=== PATIENT | female | born 2000 | race African-American/Black ===

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

== ENCOUNTER 2020-12-09 16:06 | Inpatient (IN) ==
[2020-12-09] MEDS ORDERED: Lactated Ringers 1000 ml BAG 1,000 ML IV ONE (16:45)
[2020-12-09] MEDS ORDERED: Penicillin G Potassium IV 5,000,000 UNITS in NS 0.9% 100 ml BAG 100 ML IVPB ONE (16:45)
[2020-12-09] MEDS ORDERED: Buffered Lidocaine 1% SYRIN 1 ml INTRADERM ONE (16:45)
[2020-12-09] MEDS ORDERED: Lactated Ringers 1000 ml BAG 1,000 ML IV SCH ×3 (17:00→18:00)
[2020-12-09] MEDS ORDERED: Penicillin G Potassium IV 3,000,000 UNITS in NS 0.9% 100 ml BAG 100 ML IVPB SCH (17:00)
[2020-12-09 17:02] LABS: ABS Monocytes 0.8 10^3/ul (0-0.8); Eosinophil % 0.5 %; Hematocrit 32 % (35-47); Hemoglobin 10.9 g/dL (12.0-16.0); Lymphocyte % 18.1 %; Mean Corpuscular HGB Conc 34 g/dL (31-36); Mean Corpuscular Hemoglobin 30 pg (27-31); Mean Corpuscular Volume 86 fL (80-97); Mean Platelet Volume 8.7 fL (7.4-10.4); Nucleated Red Blood Cells % 0.1; Platelet Count 219 10^3/uL (150-450); Red Cell Distribution Width 15 % (10-15); White Blood Count 10.9 10^3/uL (3.5-10.8)
[2020-12-09] MEDS ORDERED: Tetan/Diph/Pertus SYR(Tdap) 0.5 ML SYR(BOOSTRIX) use SYR contains LATEX IM ONE (17:58)
[2020-12-09] MEDS ORDERED: Dibucaine 1% OINT 28.35 GM TUBE PR PRN (17:58)
[2020-12-09] MEDS ORDERED: Witch Hazel PAD JAR TOPICAL PRN (17:58)
[2020-12-09] MEDS ORDERED: Glycerin ADULT 2.4 gm SUPP PR PRN (17:58)
[2020-12-09 21:43] LABS: Hepatitis B Surface Antigen Nonreactive (Nonreactive)
[2020-12-09 21:53] LABS: HIV 4th Generation Nonreactive (Nonreactive)
[2020-12-09 22:00] LABS: Hepatitis C Antibody Negative (Negative)
[2020-12-09 22:43] LABS: Urine Benzodiazepine Screen None Detected (None Detect); Urine Cannabinoids Screen Presumptive Positive (None Detect); Urine Opiates Screen None Detected (None Detect)
[2020-12-10 07:59] LABS: ABS Eosinophils 0.1 10^3/ul (0-0.6); ABS Lymphocytes 2.1 10^3/ul (1.0-4.8); ABS Monocytes 0.9 10^3/ul (0-0.8); ABS Neutrophils 10.1 10^3/ul (1.5-7.7); Eosinophil % 0.5 %; Hematocrit 30 % (35-47); Hemoglobin 10.2 g/dL (12.0-16.0); Lymphocyte % 16.2 %; Mean Corpuscular HGB Conc 34 g/dL (31-36); Mean Corpuscular Hemoglobin 29 pg (27-31); Mean Corpuscular Volume 87 fL (80-97); Mean Platelet Volume 8.5 fL (7.4-10.4); Nucleated Red Blood Cells % 0.1; Platelet Count 205 10^3/uL (150-450); Red Blood Count 3.51 10^6 /uL (3.70-4.87); Red Cell Distribution Width 15 % (10-15); White Blood Count 13.3 10^3/uL (3.5-10.8)
[2020-12-11 07:33] VITALS: BP 116/73
== END 2020-12-11 17:00 | disposition home or self-care (01) | DRG 560 ==
LOC: MCHOBOUT 16:06 → MCHOB 16:43
PROVIDERS: ADMIT Obstetrics & Gynecology; ATTEND Obstetrics & Gynecology

== ENCOUNTER 2021-12-16 07:20 | Inpatient (IN) ==
[2021-12-16] MEDS ORDERED: Oxytocin in LR 20 UNITS/1,000 ML BAG IVPB ONE (08:01)
[2021-12-16] MEDS ORDERED: Lactated Ringers 1000 ml BAG 1,000 ML IV ONE (08:15)
[2021-12-16] MEDS ORDERED: ceFAZolin 2 GM in NS PREMIX 2 GM/100 ML BAG IVPB ONE (08:15)
[2021-12-16] MEDS ORDERED: Buffered Lidocaine 1% SYRIN 1 ml INTRADERM ONE (08:15)
[2021-12-16] MEDS ORDERED: Witch Hazel PAD JAR TOPICAL PRN (08:20)
[2021-12-16] MEDS ORDERED: Glycerin ADULT 2.4 gm SUPP PR PRN (08:20)
[2021-12-16] MEDS ORDERED: Dibucaine 1% OINT 28.35 GM TUBE PR PRN (08:20)
[2021-12-16] MEDS ORDERED: Penicillin G Potassium IV 5,000,000 UNITS in NS 0.9% 100 ML BAG IVPB ONE (08:30)
[2021-12-16] MEDS ORDERED: Oxytocin in LR 20 UNITS/1,000 ML BAG IVPB SCH (09:00)
[2021-12-16] MEDS ORDERED: Lactated Ringers 1000 ml BAG 1,000 ML IV SCH ×2 (09:00)
[2021-12-16 11:07] LABS: Urine Benzodiazepine Screen None Detected (None Detect); Urine Cannabinoids Screen Presumptive Positive (None Detect); Urine Opiates Screen None Detected (None Detect)
[2021-12-16] MEDS: CMCS: LoraTADine 10 mg TAB (NF) PO PRN (20:42)
[2021-12-17 06:24] LABS: ABS Eosinophils 0.1 10^3/ul (0-0.6); ABS Lymphocytes 1.2 10^3/ul (1.0-4.8); ABS Monocytes 0.6 10^3/ul (0-0.8); ABS Neutrophils 7.2 10^3/ul (1.5-7.7); Eosinophil % 1.4 %; Hematocrit 28 % (35-47); Hemoglobin 8.9 g/dL (12.0-16.0); Lymphocyte % 12.7 %; Mean Corpuscular HGB Conc 33 g/dL (31-36); Mean Corpuscular Hemoglobin 27 pg (27-31); Mean Corpuscular Volume 83 fL (80-97); Mean Platelet Volume 9.1 fL (7.4-10.4); Nucleated Red Blood Cells % 0.1; Platelet Count 125 10^3/uL (150-450); Red Cell Distribution Width 15 % (10-15); White Blood Count 9.1 10^3/uL (3.5-10.8)
[2021-12-17] MEDS: CMCS: LoraTADine 10 mg TAB (NF) PO PRN (21:47)
[2021-12-18 07:53] VITALS: BP 115/61
== END 2021-12-18 12:15 | disposition home or self-care (01) | DRG 542 ==
LOC: MCHOB 07:20
PROVIDERS: ADMIT Obstetrics & Gynecology; ATTEND Obstetrics & Gynecology

== ENCOUNTER 2023-04-29 17:04 | Inpatient (IN) ==
[2023-04-29] MEDS ORDERED: Oxytocin in LR 20,000 MILLI.UNIT/1,000 ML BAG IV ONE (17:20)
[2023-04-29] MEDS ORDERED: Witch Hazel PAD JAR TOPICAL PRN (17:28)
[2023-04-29] MEDS ORDERED: Glycerin ADULT 2.4 gm SUPP PR PRN (17:28)
[2023-04-29] MEDS ORDERED: Dibucaine 1% OINT 28.35 GM TUBE PR PRN (17:28)
[2023-04-29] MEDS ORDERED: Oxytocin in LR 20,000 MILLI.UNIT/1,000 ML BAG IV SCH (17:30)
[2023-04-29] MEDS ORDERED: Lactated Ringers 1000 ml BAG 1,000 ML IV SCH (18:00)
[2023-04-29 19:06] LABS: ABS Lymphocytes 1.1 10^3/uL (1.0-4.8); ABS Monocytes 0.3 10^3/uL (0.0-0.9); ABS Neutrophils 8.4 10^3/uL (1.5-7.6); ABS Nucleated RBC 0.01 10^3/ul; Eosinophil % 0.2 %; Hematocrit 34.7 % (35-45); Hemoglobin 11.8 g/dL (11.5-14.3); Mean Corpuscular Hemoglobin 29.1 pg (27-33); Mean Corpuscular Volume 85.6 fL (80-97); Mean Platelet Volume 9.2 fL (7.5-11.2); Nucleated Red Blood Cells % 0.1 /100 WBC (0.0-0.4); Platelet Count 180 10^3/uL (150-450); Red Blood Count 4.06 10^6/uL (3.63-4.92); Red Cell Distribution Width 14.7 % (12-17); White Blood Count 9.9 10^3/uL (3.8-11.8)
[2023-04-29 19:38] LABS: HIV 4th Generation Nonreactive (Nonreactive)
[2023-04-29 19:40] LABS: Hepatitis B Surface Antigen Nonreactive (Nonreactive)
[2023-04-29 19:53] LABS: Urine Benzodiazepine Screen None Detected (None Detect); Urine Opiates Screen None Detected (None Detect)
[2023-04-29 19:58] LABS: Hepatitis C Antibody Negative (Negative)
[2023-04-30 07:31] LABS: ABS Basophils 0.1 10^3/uL (0.0-0.1); ABS Eosinophils 0.2 10^3/uL (0.0-0.5); ABS Lymphocytes 2.2 10^3/uL (1.0-4.8); ABS Monocytes 0.5 10^3/uL (0.0-0.9); ABS Neutrophils 7.5 10^3/uL (1.5-7.6); Eosinophil % 1.6 %; Hematocrit 28.3 % (35-45); Hemoglobin 9.8 g/dL (11.5-14.3); Lymphocyte % 20.8 %; Mean Corpuscular Hemoglobin 29.4 pg (27-33); Mean Corpuscular Hgb Conc 34.5 g/dL (31-36); Mean Corpuscular Volume 85.3 fL (80-97); Mean Platelet Volume 9.2 fL (7.5-11.2); Platelet Count 161 10^3/uL (150-450); Red Blood Count 3.31 10^6/uL (3.63-4.92); Red Cell Distribution Width 14.7 % (12-17); White Blood Count 10.5 10^3/uL (3.8-11.8)
[2023-04-30 11:10] LABS: HIV 4th Generation Nonreactive (Nonreactive)
[2023-05-01 09:43] VITALS: BP 119/69
[2023-05-01] MEDS ORDERED: medroxyPROGESTERone ACETATE 150 MG/ML VIAL IM ONE (15:23)
== END 2023-05-01 17:45 | disposition home or self-care (01) | DRG 560 ==
LOC: MCHOBOUT 17:04 → MCHOB 17:14
PROVIDERS: ADMIT Obstetrics & Gynecology; ATTEND Obstetrics & Gynecology